=== PATIENT | female | born 1950 | race Caucasian/White ===

== ENCOUNTER 2016-09-22 06:36 | Inpatient (IN) | payer BC, MEDICARE ==
[~2016-09-22] VITALS: Ht 172.7 cm; Wt 96.8 kg
[2016-09-26] MEDS ORDERED: HYDROCODON-ACE1 EAC4 PO (08:42)
[2016-09-26] MEDS ORDERED: CULTURELLE1 CAP PO (08:42)
[2016-09-26] MEDS ORDERED: ZOFRAN4 MG PO (08:43)
== END 2016-09-26 11:10 | disposition short-term general hospital (02) | DRG 339 ==
LOC: ER 06:36 → SURGOP 10:00 → IP 15:00
PROVIDERS: ADMIT Family Medicine
PROC: 0DTJ4ZZ Resection of Appendix, Percutaneous Endoscopic Approach (ICD-10-PCS; principal; 2016-09-22)
DX: K35.3 Acute appendicitis with localized peritonitis (principal); N39.0 Urinary tract infection, site not specified; J11.1 Influenza due to unidentified influenza virus with other respiratory manifestations; M19.90 Unspecified osteoarthritis, unspecified site; M81.0 Age-related osteoporosis without current pathological fracture; N95.2 Postmenopausal atrophic vaginitis; B95.1 Streptococcus, group B, as the cause of diseases classified elsewhere
CPT/HCPCS: J0330; J1335; J1650; J1885; J2250; J2270; J2405; J2543; J2765; J3010; Q9963

== ENCOUNTER → 2016-09-28 | Outpatient (CLI) | payer BC, MEDICARE ==
[~2016-09-28] MED LIST: CULTURELLE1 CAP PO; HYDROCODON-ACE1 EAC4 PO; ZOFRAN4 MG PO
== END | disposition short-term general hospital (02) ==
LOC: CLSURG 08:32
DX: Z48.815 Encounter for surgical aftercare following surgery on the digestive system (principal)